=== PATIENT | female | born 1945 | race Two or more races ===

== ENCOUNTER 2020-10-25 08:00 | Outpatient (CLI) | payer OTHER | END 2020-10-25 08:30 | disposition home or self-care (01) | LOC: PPH VACUNA 08:00 | DX: Z23 Encounter for immunization (principal) ==

== ENCOUNTER 2020-11-03 07:34 | Outpatient (CLI) | payer OTHER | END 2020-11-03 07:45 | disposition home or self-care (01) | LOC: RAD 07:34 | PROVIDERS: ATTEND Internal Medicine | DX: M50.323 Other cervical disc degeneration at C6-C7 level (principal); M79.18 Myalgia, other site ==

== ENCOUNTER 2021-09-05 12:12 | Outpatient (CLI) | payer OTHER | END 2021-09-05 12:27 | disposition home or self-care (01) | LOC: PPH VACUNA 12:12 | PROVIDERS: ATTEND Emergency Medicine Pediatric Emergency Medicine | DX: Z23 Encounter for immunization (principal) ==